=== PATIENT | male | born 1995 | race Caucasian/White ===

== ENCOUNTER 2017-03-09 18:08 | Emergency (ER) | payer OTHER ==
--- NOTE | 2017-03-09 18:57 | CPEKG ---
Heart Rate: 58 RR Interval: 1034 P-R Interval: 164 QRSD Interval: 102 QT Interval: 408 QTC Interval: 401 P [place]: 45 QRS [place]: 89 T Wave [place]: 44 EKG Severity - NORMAL ECG - EKG Impression: SINUS RHYTHM Electronically Signed By: Luis Root 09-Mar-2017 21:19:12
[2017-03-09 19:16] VITALS: PULSE 60
[2017-03-09 19:22] LABS: % IMMATURE GRANULYOCYTES 0.5 % (0.0-1.1); ABSOLUTE IMMATURE GRANULOCYTES 0.05 10^3/uL (0.00-0.10); ADD DIFF? NO; ADD MORPH? NO; ADD SCAN? NO; ATYPICAL LYMPHOCYTE FLAG 0 (0-99); FRAGMENT RBC FLAG 0 (0-99); HEMATOCRIT 43.3 % (40.0-51.0); HEMOGLOBIN 15.2 g/dL (13.7-17.5); LEFT SHIFT FLG 10 (0-99); LIPEMIA HEMOLYSIS FLAG 90 (0-99); MEAN CELL HEMOGLOBIN 28.9 pg (27.9-34.1); MEAN CELL HEMOGLOBIN CONCENTR. 35.1 g/dL (32.4-36.7); MEAN CELL VOLUME 82.3 fL (81.5-99.8); MEAN PLATELET VOLUME 10.7 fL (8.7-11.7); PLATELET CLUMPS FLAG 10 (0-99); PLATELET COUNT 196 10^3/uL (150-400); RED BLOOD CELL COUNT 5.26 10^6/uL (4.40-6.38); RED CELL DISTRIBUTION WIDTH 12.8 % (11.5-15.2)
[2017-03-09 19:34] LABS: ALANINE AMINOTRANSFERASE 37 IU/L (21-72); ALBUMIN 4.8 g/dL (3.5-5.0); ALKALINE PHOSPHATASE 44 IU/L (38-126); ANION GAP 12 mEq/L (8-16); ASPARTATE AMINOTRANSFERASE 28 IU/L (17-59); BILIRUBIN,TOTAL 3.8 mg/dL (0.1-1.4); CALCIUM 9.8 mg/dL (8.5-10.4); CARBON DIOXIDE 24 mEq/l (22-31); CHLORIDE 100 mEq/L (97-110); CREATININE 0.9 mg/dL (0.7-1.3); GLOMERULAR FILTRATION RATE > 60; GLUCOSE 106 mg/dL (70-100); POTASSIUM 3.9 mEq/L (3.5-5.2); SODIUM 136 mEq/L (134-144); TOTAL PROTEIN 7.8 g/dL (6.3-8.2)
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
[2017-03-09 19:59] LABS: BILIRUBIN-CONJUGATED 0.7 mg/dL (0.0-0.5); BILIRUBIN-UNCONJUGATED 3.1 mg/dL (0.0-1.1)
[2017-03-09 20:04] VITALS: BP 127/67; RESP 12; O2SAT 97
[2017-03-09 20:12] VITALS: TEMP 98.4
== END 2017-03-09 20:16 | disposition home or self-care (01) ==
DX: R55 Syncope and collapse (principal)